=== PATIENT | female | born 1975 | race African-American/Black ===

== ENCOUNTER 2022-09-19 12:04 | Emergency (ER) | payer SELFPAY ==
[~2022-09-19] VITALS: Ht 157.5 cm; Wt 88.0 kg
[2022-09-19 12:14] VITALS: BP_SYST 141
--- NOTE | 2022-09-19 12:19 | NUR ---
INSERTED A QUITIP IN LEFT EAR" THINK I HAVE A RUPTURED EARDRUM, BLOOD IS COMING OUT"
--- NOTE | 2022-09-19 12:29 | NUR ---
SEEN AN EXAMINED BY CECI SWANN, DC INSTRUCTIONS GIVEN
[2022-09-19] MEDS ORDERED: CORTEARS EACH EAR (12:37)
--- NOTE | 2022-09-19 12:50 | NUR ---
Patient given written and verbal discharge instructions and verbalizes understanding. ER discussed with patient the results and treatment provided. Patient in stable condition. Rx of given. Patient educated on pain management and to follow up with PMD. Pain Scale [2]. Opportunity for questions provided and answered. Medication side effect fact sheet provided. Addendum: 09/19/22 at 1529 by [email or web address] DISCHARGE UNDER [facility]ACI [place] NOT DR LITTLE
== END 2022-09-19 12:50 | disposition home or self-care (01) ==
LOC: SED 12:04
DX: H72.91 Unspecified perforation of tympanic membrane, right ear (principal); H92.01 Otalgia, right ear; Z79.899 Other long term (current) drug therapy
CPT/HCPCS: 99283